=== PATIENT | female | born 1960 | race Two or more races ===

== ENCOUNTER 2019-03-21 09:34 | Emergency (ER) | payer MEDICAID ==
[~2019-03-21] VITALS: Ht 147.3 cm; Wt 69.4 kg
[2019-03-21 10:04] LABS: BASOPHIL % 0.3 % (0-2); PLATELET COUNT 289 x10^3mcL (130-400)
[2019-03-21 10:12] LABS: CALCIUM 8.6 mg/dL (8.5-10.1); CHLORIDE SERUM 101 mmol/L (98-107); CREATININE SERUM 0.7 mg/dL (0.6-1.0); GFR1 > 60 mL/min; GLUCOSE SERUM 263 mg/dL (74-106); SODIUM SERUM 138 mmol/L (136-145)
[2019-03-21 10:17] LABS: ALKALINE PHOSPHATASE 91 U/L (46-116); ALT/SGPT 64 U/L (14-59); AST/SGOT 33 U/L (15-37); BILIRUBIN TOTAL 0.4 mg/dL (0.20-1.00); LIPASE 149 IU/L (73-393); TOTAL PROTEIN, SERUM 7.9 g/dL (6.4-8.2)
[2019-03-21 14:02] VITALS: BP 128/97
== END 2019-03-21 14:02 | disposition home or self-care (01) ==
LOC: ED 09:34
DX: R10.13 Epigastric pain (principal); E11.65 Type 2 diabetes mellitus with hyperglycemia; E88.89 Other specified metabolic disorders; Z88.2 Allergy status to sulfonamides
CPT/HCPCS: 36415; Q0092; Q0162